=== PATIENT | male | born 1990 | race Two or more races ===

== ENCOUNTER 2017-05-22 16:41 | Emergency (ER) | payer MEDICAID ==
[~2017-05-22] VITALS: Ht 167.6 cm; Wt 103.4 kg
[2017-05-22 16:51] VITALS: BP 132/93
[2017-05-22] MEDS ORDERED: KETOROLAC TROMETH 60MG/2ML VIAL IM ONE (17:30)
== END 2017-05-22 18:12 | disposition home or self-care (01) ==
LOC: ER 16:49
DX: M54.12 Radiculopathy, cervical region (principal); M25.511 Pain in right shoulder; R20.0 Anesthesia of skin; Z88.6 Allergy status to analgesic agent
CPT/HCPCS: 96372; 99283; J1885

== ENCOUNTER 2017-07-15 18:40 | Emergency (ER) | payer SELFPAY ==
[~2017-07-15] VITALS: Ht 170.2 cm; Wt 106.1 kg
[2017-07-15 19:32] VITALS: BP 146/97
== END 2017-07-15 21:10 | disposition home or self-care (01) ==
LOC: ER 18:47
DX: S46.911A Strain of unspecified muscle, fascia and tendon at shoulder and upper arm level, right arm, initial encounter (principal); F17.210 Nicotine dependence, cigarettes, uncomplicated; Z88.6 Allergy status to analgesic agent; X58.XXXA Exposure to other specified factors, initial encounter; Y93.89 Activity, other specified; Y92.89 Other specified places as the place of occurrence of the external cause; Y99.8 Other external cause status
CPT/HCPCS: 73030

== ENCOUNTER 2017-12-19 12:28 | Emergency (ER) | payer MEDICAID ==
[~2017-12-19] VITALS: Ht 167.6 cm; Wt 102.1 kg
[2017-12-19 12:38] VITALS: BP 134/92
[2017-12-19] MEDS ORDERED: SUMAtriptan SUCCINATE 6 MG/0.5 ML VL SC ONE (13:45)
[2017-12-19] MEDS ORDERED: KETOROLAC TROMETH 60MG/2ML VIAL IM ONE (14:00)
== END 2017-12-19 14:36 | disposition home or self-care (01) ==
LOC: ER 12:28
DX: G43.909 Migraine, unspecified, not intractable, without status migrainosus (principal); F17.210 Nicotine dependence, cigarettes, uncomplicated
CPT/HCPCS: 96372; 99283; J1885

== ENCOUNTER 2018-08-14 06:19 | Emergency (ER) | payer MEDICAID ==
[~2018-08-14] VITALS: Ht 170.2 cm; Wt 102.1 kg
[2018-08-14 07:09] LABS: Basophils # (auto) 0 uL; Basophils % (auto) 0.6 % (0.0-2.0); Eosinophils # (auto) 0.1 uL; Eosinophils % (auto) 1.9 % (0.0-7.0); Hematocrit 48.2 % (41.0-53.0); Hemoglobin 16.4 g/dL (13.5-17.5); Lymphocytes % (auto) 27.6 % (10.0-50.0); Mean Corpuscular Hemoglobin 30.8 pg (28.0-32.0); Mean Corpuscular Hgb Conc. 33.9 g/dL (32.0-36.0); Mean Corpuscular Volume 90.8 fL (80.0-100.0); Monocytes # (auto) 0.4 uL; Monocytes % (auto) 5.3 % (0.0-12.0); Neutrophils # (auto) 4.7 uL; Neutrophils % (auto) 64.6 % (37.0-80.0); Nucleated Red Blood Cells % 0.1 %; Platelet Count (auto) 316 10^3/uL (140-450); Red Blood Cells 5.31 10^6/uL (4.5-5.90); Red Cell Distribution Width 13.7 % (11.8-14.3); White Blood Cell 7.2 10^3/uL (4.4-10.8)
[2018-08-14 07:17] LABS: Urine Bacteria NONE SEEN /hpf (None Seen); Urine Blood Negative /uL (Negative); Urine Mucus FEW (None Seen); Urine Specific Gravity 1.028 (1.001-1.035); Urine WBC 2 /hpf (0 - 3)
[2018-08-14 07:25] LABS: Albumin 4.1 g/dL (3.4-5.0); BUN/Creatinine Ratio 18.6; Calcium 8.8 mg/dL (8.5-10.1); Magnesium 2.3 mg/dL (1.6-2.6); Potassium 4.3 mmol/L (3.5-5.1)
[2018-08-14 07:27] LABS: Bilirubin, Total 0.5 mg/dL (0.2-1.0); Total Protein 8.6 g/dL (6.4-8.2)
[2018-08-14] MEDS ORDERED: DONNATAL 5ml ORAL Elix (BELLADONNA ALK-PHENOBARB) PO ONE (08:15)
[2018-08-14] MEDS ORDERED: LIDOCAINE VISCOUS 2% 15ML UD PO ONE (08:15)
[2018-08-14] MEDS ORDERED: ALUM & MAG HYDROX-SIMETH LIQ(MAALOX) 30 ML PO ONE (08:15)
[2018-08-14 08:18] VITALS: BP 134/79
== END 2018-08-14 08:55 | disposition home or self-care (01) ==
LOC: ER 06:20
DX: K29.70 Gastritis, unspecified, without bleeding (principal); F17.210 Nicotine dependence, cigarettes, uncomplicated; Z88.6 Allergy status to analgesic agent
CPT/HCPCS: 36415; 80053; 81001; 83735; 85025; 99284; J7030

== ENCOUNTER 2022-01-29 03:35 | Emergency (ER) | payer BC, MEDICAID ==
[~2022-01-29] VITALS: Ht 167.6 cm; Wt 88.5 kg
[2022-01-29 08:15] VITALS: BP 146/110
[2022-01-29] MEDS ORDERED: ACETAMINOPHEN/CODEINE#3 (300/30mg) TAB PO ONE (10:15)
[2022-01-29] MEDS ORDERED: ACE3T PO (10:59)
== END 2022-01-29 11:38 | disposition home or self-care (01) ==
LOC: ER 03:35
DX: S29.012A Strain of muscle and tendon of back wall of thorax, initial encounter (principal); F17.210 Nicotine dependence, cigarettes, uncomplicated; X58.XXXA Exposure to other specified factors, initial encounter; Y93.89 Activity, other specified; Y92.89 Other specified places as the place of occurrence of the external cause; Y99.8 Other external cause status
CPT/HCPCS: 72070

== ENCOUNTER 2023-05-31 02:19 | Emergency (ER) | payer BC ==
[~2023-05-31] VITALS: Ht 165.1 cm; Wt 127.6 kg
[~2023-05-31 02:19] MED LIST: ACE3T PO
[2023-05-31 03:13] VITALS: BP 141/95; PULSE 80; RESP 20; TEMP 99.1; O2SAT 97
[2023-05-31 04:04] LABS: COVID19 ANTIGEN SOFIA FIA POSITIVE (NEGATIVE)
== END 2023-05-31 04:10 | disposition home or self-care (01) ==
LOC: ER 02:19
DX: U07.1 COVID-19 (principal)
CPT/HCPCS: 36415; 71046; 87426